=== PATIENT | male | born 1995 | race Caucasian/White ===

== ENCOUNTER 2017-07-14 21:18 | Emergency (ER) | payer SELFPAY ==
[~2017-07-14] VITALS: Ht 185.4 cm; Wt 95.3 kg
[2017-07-14 21:50] VITALS: BP 114/75
[2017-07-14] MEDS ORDERED: NKM (21:50)
[2017-07-14] MEDS ORDERED: IBUPROFEN600 MG ORAL (22:52)
[2017-07-14 23:11] VITALS: BP 125/82
--- NOTE | 2017-07-15 01:33 | Emergency Room Report ---
History of Present Illness General Chief Complaint: Upper Extremity Injury Source: Patient Present Illness HPI 22-year-old male presents to ED with left him pain. States that he accidentally slammed a car door on his left hand tonight. Denies any other injuries. notes pain and bruising to the left thumb. Pain is a 5/10, throbbing , nonradiating. tetanus is up-to-date. No other of any relieving factors. Denies any other associated symptoms Allergies: Coded Allergies: No Known Allergies (Unverified , 07/14/17) Patient History Past Medical History: none Past Surgical History: none Pertinent Family History: none Social History: Denies: smoking, alcohol use, drug use Immunizations: UTD Reviewed Nursing Documentation: PMH: Agreed, PSxH: Agreed Nursing Documentation-PMH Past Medical History: No Stated History Review of Systems All Other Systems: negative except mentioned in HPI Physical Exam Vital Signs Date Time Temp Pulse Resp B/P (MAP) Pulse Ox O2 Delivery O2 Flow Rate FiO2 07/14/17 21:43 98.4 82 16 114/75 99 Room Air Sp02 EP Interpretation: reviewed, normal General Appearance: no apparent distress, alert, GCS 15, non-toxic Head: normocephalic Eyes: bilateral eye normal inspection, bilateral eye PERRL ENT: normal ENT inspection Neck: normal inspection Respiratory: normal inspection Cardiovascular #1: normal inspection Gastrointestinal: normal inspection Rectal: deferred Genitourinary: no CVA tenderness Musculoskeletal: tender - L thumb Neurologic: alert, oriented x3, responsive, motor strength/tone normal, sensory intact, speech normal Psychiatric: normal inspection Skin: normal inspection Lymphatic: normal inspection Medical Decision Making Diagnostic Impression: Primary Impression: Thumb contusion Qualified Codes: S60.012A - Contusion of left thumb without damage to nail, initial encounter ER Course Hospital Course 22-year-old M presents to ED complaining of L thumb pain s/p slammed in car door Differential diagnoses include: Fracture, dislocation, sprain, contusion Clinical course Patient placed on stretcher. After initial history and physical, I ordered Xrays of L hand; patient declined pain medications Xrays prelim read shows no acute fracture/dislocation. Diagnosis - thumb contusion Stable and discharged to home with prescription for Motrin. apply ice, keep elevated. weight bear as tolerated. Followup with PMD. Return to ED if symptoms recur or worsen Other X-Ray Diagnostic Results Other X-Ray Diagnostic Results : X-Ray ordered: L hand # of Views/Limited Vs Complete: 3 View Indication: Pain EP Interpretation: Yes Interpretation: no dislocation, no soft tissue swelling, no fractures Impression: No acute disease Electronically Signed by: Electronically signed by Triston Pritchard MD Last Vital Signs Date Time Temp Pulse Resp B/P (MAP) Pulse Ox O2 Delivery O2 Flow Rate FiO2 07/14/17 23:11 98.4 75 15 125/82 100 Room Air Status: improved Disposition: HOME, SELF-CARE Condition: Stable Scripts Ibuprofen* (MOTRIN*) 600 Mg Tablet 600 MG ORAL Q8H Y for For Pain, #30 TAB 0 Refills Prov: TRISTON PRITCHARD M.D. 07/14/17 Referrals: NOT CHOSEN HERNAN/,REFERRING (PCP) Patient Instructions: Contusion, [id number] TRISTON PRITCHARD M.D. Jul 15, 2017 01:33
--- NOTE | 2017-07-15 11:11 | Diagnostic Imaging Report ---
Indication: PAIN Technique: 3 views left hand Comparison: none Findings: No acute fractures. No dislocations. The joint spaces are preserved. Impression: No acute bony trauma This agrees with the preliminary interpretation provided by the emergency room physician
== END 2017-07-14 23:11 | disposition home or self-care (01) ==
LOC: EMR 21:55
DX: S60.012A Contusion of left thumb without damage to nail, initial encounter (principal); W22.8XXA Striking against or struck by other objects, initial encounter; Y93.9 Activity, unspecified; Y92.9 Unspecified place or not applicable
CPT/HCPCS: 99283